=== PATIENT | male | born 1990 | race Caucasian/White ===

== ENCOUNTER 2025-02-27 12:11 | Outpatient (AMB) | payer MEDICAID, SELFPAY ==
--- OUTSIDE RECORDS SUMMARY | 2025-02-14 14:00 | XMS_ITS | Encounter Summary ---
Author Organization [facility] Address [address] [place] [address] Care Team Providers Care Patient Care Provider Name Role Phone Parviz Rich MD Primary Care Provider [phone] Reason for Referral * Imaging (Routine) - Pending Review Specialty Diagnoses / Procedures Referred By Destin de león Referred To Contact Diagnoses Chest pain due to myocardial ischemia, unspecified ischemic chest pain type Resistant hypertension Hx of mechanical aortic valve replacement History of ascending aorta repair Other chest pain Renovascular hypertension Procedures Vascular US duplex renal artery/venous bilateral Bernard Nelson MD [address] [facility] [address] [place] [address] Phone: tel: fax: [facility] Referral ID Status Reason Start Date Expiration Date V isits Requested Visits Authorized [id number] Pending Review 02/14/2025 02/14/2026 1 1 Reason for Visit * Reason Comments Hospital Follow-up * Consultation (Urgent) - Closed Specialty Diagnoses / Procedures Referred By Destin de león Referred To Contact Cardiology Diagnoses Chest pain due to myocardial ischemia, unspecified ischemic chest pain type Parviz Rich MD [address] [place] [address] Phone: tel: fax: [facility] [address] [facility] [address] [place] [address] Phone: tel: fax: Referral ID Status Reason Start Date Expiration Date V isits Requested Visits Authorized [id number] Closed Specialty Services Required 12/07/2024 12/07/2025 1 1 Encounter Details Date Type Department Care Team (Late st Contact Info) Description 02/14/2025 2:00 PM EDT Office Visit [facility] [address] [facility] [address] [place] [id number] Bernard Nelson MD [address] [facility] [address] [place] [address] Resistant hypertension (Primary Dx); Chest pain due to myocardial ischemia, unspecified ischemic chest pain type; Hx of mechanical aortic valve replacement; History of ascending aorta repair; Other chest pain; Mixed hyperlipidemia; Renovascular hypertension Social History Tobacco Use Types Packs/Day Years Used Date Smoking Tobacco: Never Smokeless Tobacco: Never Alcohol Use Standard Drinks/Week Comments Never 0 (1 standard drink = 0.6 oz pur e alcohol) Interpersonal Safety Answer Date Record ed Physical Abuse 12/01/2024 Verbal Abuse 12/01/2024 Sex and Gender Information Value Date Recorded Sex Assigned at Male 11/30/2024 7:00 PM EDT Legal Sex Male 9:03 AM EST Gender Identity Male 11/30/2024 7:00 PM EDT Sexual Orientation Straight 11/30/2024 7: 00 PM EDT documented as of this encounter Last Filed Vital Signs Vital Sign Reading Time Taken Comments Blood Pressure 140/72 02/14/2025 1:52 PM EDT Pulse 63 02/14/2025 1:52 PM EDT Temperature - - Respiratory Rate - - Oxygen Saturation 98% 02/14/2025 1:52 PM EDT Inhaled Oxygen Concentration - - Weight 62.1 kg (137 lb) 02/14/2025 1:52 PM EDT Height 160 cm (5' 3 ) 02/14/2025 1:52 PM EDT Body Mass Index 24.27 02/14/2025 1:52 PM EDT documented in this encounter Functional Status * Are you deaf or do you have serious difficulty hearing? Answer Date of Assessment Author No 11/30/2024 8:51 PM EDT Roseanna Bill RN * Are you blind or do you have serious difficulty seeing, even when wearing glasses? Answer Date of Assessment Author No 11/30/2024 8:51 PM EDT Roseanna Bill RN * Do you have serious difficulty walking or climbing stairs? Answer Date of Assessment Author No 11/30/2024 8:51 PM EDT Roseanna Bill RN * Do you have serious difficulty dressing or bathing? Answer Date of Assessment Author No 11/30/2024 8:51 PM EDT Roseanna Bill RN * Because of a physical, mental, or emotional condition, do you have serious difficulty doing errandsalone such as visiting the doctor? Answer Date of Assessment Author No 11/30/2024 8:51 PM EDT Roseanna Bill RN documented as of this encounter Mental Status * Because of a physical, mental, or emotional condition, do you have serious difficulty concentrating, remembering, or making decisions? (5 years old or older) Answer Entry Date Author No 11/30/2024 8:51 PM EDT Roseanna Bill RN documented in this encounter Progress Notes * Bernard Nelson MD - 02/14/2025 2:00 PM EDT -Felipe Mera is a 34 y.o. old male Felipe was in [facility] in November. It was around December 04. He wasadmitted with generalized weakness and dizziness. He had actually left the hospital AGAINST MEDICALADVICE. He came in to [facility] after a recent admission to [facility] with uncontrolled hypertension. Amlodipine was added and he was discharged in the next day went to [facility] with generalized weakness,lightheadedness and dizziness. His blood pressure was 162/94 temp 97.9 heart rate 82. EKG normal. Laboratory evaluation was unremarkable. CTA of the head and neck was normal. CT of the head was normal. When he came to [facility] it was November 29. He actually had a laceration on his tongue on November 29. On November 30 he came back with left-sided chest pain that improved on its own. Labs EKG etc. normal. Amlodipine added for his high blood pressure. Dr. Solares saw him in consultation December 02. He thought the pain was more typical of the GI pain and suggested checking amylase and lipase. Plasma metanephrines were alsoordered. And he thought that it the patient might need a renal artery duplex. CTA of the chest showed no dissection and mild dilatation of the aortic arch. Mild increase in sizeof the pulmonary arteries. He was a sharp pain in the chest. Somewhat pleuritic. C-reactive proteinnormal. Sed rate 17. Plasma metanephrines and normetanephrine's normal. His last visit with us was August 20. He has a history of primary hypertension, hyperlipidemia andascending aortic dilatation status post repair and valve replacement. His father of an ID at age 50. The surgery was in 2019. ROS: Felipe has been plagued by chronic pain he says since August. But at the same time he says he has had this for years but he when he was here in July 2024 he was exercising regularly with nopain and feeling well. He has become from his . They share custody of 2 children. He told Cecy that he has not been able to work because of pain and smokes marijuana. The pain is in the left lateral wall of the chest. It usually occurs in the morning when he wakes up and can radiatedown the left arm and last all day long. It usually every day sometimes every other day. Sometimes it will not occur in the morning but will occur later in the day and it will be a sharp pain. It canlast for hours. The pain is not any different with respiration or palpation. He says its deep inside the chest. He also told me that since adding amlodipine his blood pressures at home are generally 110-120. PAST MEDICAL HISTORY: Patient Active Problem List Diagnosis Date Noted Resistant hypertension 02/14/2025 Hypertensive urgency 12/07/2024 Other chest pain 12/02/2024 Chest pain 11/30/2024 History of ascending aorta repair 08/16/2024 Mixed hyperlipidemia 08/16/2024 Bradycardia 08/16/2024 Mild pulmonary valve insufficiency 08/16/2024 Mild mitral regurgitation 08/16/2024 Mild tricuspid regurgitation 08/16/2024 Family history of premature CAD 08/16/2024 Primary hypertension 07/03/2021 Ascending aortic aneurysm (CMS/HCC V24) 06/15/2020 Erectile dysfunction 06/15/2020 Nonrheumatic aortic (valve) insufficiency 06/15/2020 Hx of mechanical aortic valve replacement 11/24/2019 Recurrent shoulder dislocation 01/12/2014 Generalized tonic clonic epilepsy ([facility] V24, [facility] V28) 07/09/2006 FAMILY HISTORY: Family History Problem Relation Name Age of Onset Arthritis Mother Heart attack Father 56.00 from massive heart attack Other (Other: MVA) Sister x 1 Nephrolithiasis Sister x 3 Stroke Maternal Grandfather 55.00 ID, HTN, EtOH abuse SOCIAL HISTORY: Social History Tobacco Use Smoking status: Never Smokeless tobacco: Never Substance Use Topics Alcohol use: Never ACTIVE MEDICATIONS: Outpatient Medications Prior to Visit Medication Sig Dispense Refill amLODIPine (NORVASC) 10 mg tablet Take 1 tablet (10 mg total) by mouth 1 (one) time each day. 30 each 5 hydrALAZINE (APRESOLINE) 50 mg tablet Take 1 tablet (50 mg total) by mouth 2 (two) times a day. (Patient taking differently: Take 1 tablet (50 mg total) by mouth 2 (two) times a day. As needed) 60 each 0 losartan (COZAAR) 100 mg tablet Take 1 tablet (100 mg total) by mouth 1 (one) time each day. 90 tablet 2 metoprolol succinate (TOPROL-XL) 50 mg 24 hr tablet Take 1 tablet (50 mg total) by mouth 1 (one) time each day. Do not crush or chew. 90 each 2 OXcarbazepine (TRILEPTAL) 600 mg tablet Take 2 Tabs by mouth 2 times daily. PHENobarbitaL 30 mg tablet Take 1 tablet (30 mg total) by mouth at bedtime. warfarin (COUMADIN) 10 mg tablet 1 tablet (10 mg total). Followed by [facility] warfarin (COUMADIN) 2.5 mg tablet MANAGED BY [facility] methocarbamoL (ROBAXIN) 500 mg tablet Take 1 tablet (500 mg total) by mouth 3 (three) times a day. (Patient taking differently: Take 1 tablet (500 mg total) by mouth 1 (one) time if needed.) 30 tablet 1 No facility-administered medications prior to visit. ALLERGIES: @ALL@ PHYSICAL EXAM: Blood pressure (!) 140/72, pulse 63, height 1.6 m (63 ), weight 62.1 kg (137 lb), SpO2 98%. Physical Exam Constitutional: Appearance: Normal appearance. Comments: He is a trim fit appearing young man. HENT: Head: Normocephalic. Eyes: Extraocular Movements: Extraocular movements intact. Pupils: Pupils are equal, round, and reactive to light. Neck: Vascular: No carotid bruit. Cardiovascular: Rate and Rhythm: Normal rate and regular rhythm. Pulses: Normal pulses. Heart sounds: Normal heart sounds. Comments: Well-healed midline scar. [place] mechanical valve sounds. Pulmonary: Effort: Pulmonary effort is normal. Breath sounds: Normal breath sounds. Abdominal: General: Bowel sounds are normal. Palpations: Abdomen is soft. Musculoskeletal: Right lower leg: No edema. Left lower leg: No edema. Skin: General: Skin is warm and dry. Neurological: General: No focal deficit present. Psychiatric: Mood and Affect: Mood normal. EKG: Blood pressure scratch that EKG December 07, 2024 shows sinus rhythm at 60 with early repolarization and evidence of voltage criteria for LVH. TESTING: No results displayed because visit has over 200 results. Office Visit on 08/16/2024 Component Date Value Ref Range Status Ventricular Rate ECG 08/16/2024 52 BPM Final Atrial Rate 08/16/2024 52 BPM Final P-R Interval 08/16/2024 176 ms Final QRS Duration 08/16/2024 98 ms Final Q-T Interval 08/16/2024 442 ms Final QTc 08/16/2024 411 ms Final P Wave Sterling 08/16/2024 65 degrees Final R Sterling 08/16/2024 69 degrees Final T Sterling 08/16/2024 73 degrees Final ECG Interpretation 08/16/2024 Final Value:Sinus bradycardia Possible Left atrial enlargement Left ventricular hypertrophy Nonspecific ST abnormality Abnormal ECG When compared with ECG of 29-MAY-2014 15:47, No significant change was found Confirmed by Jhoana NELSON JAY ([id number]) on 08/16/2024 9:16:38 AM Abstract on 08/04/2024 Component Date Value Ref Range Status Gonorrhea/Chlamydia Screening 06/06/2014 abstracted Final Hepatitis C Screening 11/08/2021 abstracted Final HIV Screening 03/16/2014 abstracted Final Annual BMP Blood Test 11/08/2021 abstracted Final LDL/HDL Ratio 07/04/2021 7 (A) 0 - 4 Final Triglycerides 07/04/2021 318 (A) 0 - 10 mg/dL Final Cholesterol 07/04/2021 239 (A) 0 - 200 mg/dL Final HDL 07/04/2021 37 (A) >=39 mg/dL Final LDL Cholesterol 07/04/2021 139 (A) 0 - 100 mg/dL Final ASSESSMENT/PLAN: Problem List Items Addressed This Visit Hx of mechanical aortic valve replacement Relevant Orders Vascular US duplex renal artery/venous bilateral History of ascending aorta repair Relevant Orders Vascular US duplex renal artery/venous bilateral Mixed hyperlipidemia Chest pain Relevant Orders Vascular US duplex renal artery/venous bilateral Vascular US duplex renal artery/venous bilateral Other chest pain Relevant Orders Vascular US duplex renal artery/venous bilateral Resistant hypertension - Primary Relevant Orders Vascular US duplex renal artery/venous bilateral Orders Placed This Encounter Procedures Vascular US duplex renal artery/venous bilateral Echo is having chronic sharp deep-seated left lateral wall chest pain. It is actually not in the wall but deep inside the chest. CTs of the chest with contrast have been normal. On December 08 I ordered acoronary CTA which was done last week. Results are pending. His blood pressure remains elevated on multiple medications. Today 140/72. He has been unable to work because of this pain. He is under a lot of stress having to get money to ensure he has a place to live that is children are taken care of. He wants to go for second opinions to [facility] cardiology. There have been insurance problems with that. He is trying to change his insurance situation. 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 We have to look elsewhere for causes of the chest pain. Exactly where I am not sure. For his blood pressure I am setting up a renal artery duplex. We might also consider 24-hour ambulatory blood pressure monitoring. The [facility] team will continue to co-manage this patient following the plan of care as established by my initial visit and as per AHA guidelines for ongoing management and surveillance of aortic valve and aortic root replacement. Hypertension hyperlipidemia chest pain. . This will include medication tit ration, initiation of appropriate medications and further titration, and diagnostic studies to manage this disease process. @ESIGNATURE@ documented in this encounter Plan of Treatment Upcoming Encounters Date Type Department Care Team (Late st Contact Info) Description 03/22/2025 7:00 AM EDT Ancillary Procedure [facility] [address] [phone] 04/21/2025 11:20 AM EDT Office Visit [facility] [address] [phone] Bernard Nelson MD [address] [address] Scheduled Orders Name Type Priority Associated Diagnoses Orde r Schedule Vascular US duplex renal artery/venous bilateral Vascular Ultrasound Routine Chest pain due to myocardial ischemia, unspecified ischemic chest pain type Resistant hypertension Hx of mechanical aortic valve replacement History of ascending aorta repair Other chest pain Renovascular hypertension 1 Occurrences starting 02/14/2025 until 02/14/2026 documented as of this encounter Visit Diagnoses Diagnosis Resistant hypertension- Primary Chest pain due to myocardial ischemia, unspecified ischemic chest pain type Hx of mechanical aortic valve replacement History of ascending aorta repair Other chest pain Mixed hyperlipidemia Renovascular hypertension Secondary renovascular hypertension, unspecified documented in this encounter Orders Outpatient Referral Count Last Ordered Date Fir st Ordered Date AMB REFERRAL TO CARDIOLOGY 1 02/14/2025 documented in this encounter Care Teams Patient Care Provider Relationship Specialty Start Date End Date Parviz Rich MD [address] [place] [id number] PCP - General Internal Medicine 08/24/24 documented as of this encounter
--- NOTE | 2025-02-27 12:17 | A.OFFVIS_ITS ---
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 He was diagnosed at [facility] in 2017. He was getting grand mal seizures. Typically, he had warning of fear, inability to speak, and falling down and shaking all over. He has bitten his tongue but has not urinated during the spell. After not having any seizure-like episode since 2019, he had 3 different episodes in a span of 3 months in 2023 without obvious reason and Fycompa was added. His insurance did not cover it and it was changed to phenobarbital. Phenobarbital was helping. He said that since taking it he did not have any more episodes. Review of Systems Const Details: Constitutional:?No fever, chills, fatigue, weight loss, or night sweats. HEENT:?No headache, vision changes, hearing loss, nasal congestion, sore throat. Neurological:?No dizziness, syncope, seizures, numbness, tingling, weakness, tremors, memory loss. Psychiatric:?No anxiety, depression, mood swings, sleep disturbance, or hallucinations. Endocrine:?No heat/cold intolerance, polydipsia, polyuria, or hair/skin changes. Hematologic/Lymphatic:?No easy bruising, bleeding, or lymphadenopathy. Integumentary (Skin):?No rash, lesions, itching, or color changes. ? Physical Exam Neuro Other: Mental Status: Alert and oriented to person, place, and time. Normal attention. Normal spontaneous speech, fluency, and comprehension. No obvious issues with mood and memory. Affect is appropriate. Cranial Nerves: CN II: Visual kathleen full to confrontation, visual acuity intact. CN III, IV, : Pupils equal, round, reactive to light and accommodation. Extraocular movements are normal. CN V: Facial sensation is normal. CN VII: Facial movements symmetrical. CN VIII: Hearing intact to bedside conversation is normal. CN IX, X: Palate elevates symmetrically. CN XI: Shoulder shrug and head turn symmetrical. CN XII: Tongue midline without atrophy or fasciculations. Extrapyramidal: Full facial expressions and blinking. No rigidity. Movements are appropriate with no tremor or abnormality. Speech: Normal; no dysarthria or tremor. 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 Oxcarbazepine 600 mg twice a day 2. Phenobarbital 30 mg at night 3. MRI of brain with and without contrast Orders: Orders MR head/brain wo/w con Today G40.804 - Other epilepsy, intractable, without status epilepticus Medications: New oxcarbazepine 600 mg PO BID 180 tabs 0RF phenobarbital 30 mg PO BEDTIME 90 tabs 0RF Coding Level of Care Code Est Pt Level 4 (53643) Diagnoses Other intractable epilepsy without status epilepticus G40.804 Epilepsy type: other Intractability: intractable Status epilepticus: without status epilepticus
--- OUTSIDE RECORDS SUMMARY | 2025-02-27 12:50 | XMS_ITS | Clinical Summary ---
Author Organization [facility] Address [address] [place] [phone] Phone Care Team Providers Care Veterinary Practice Manager Name Role Phone Parviz Rich MD Primary Care Provider + Encounters Date Type Department Care Team Description 12/27/2024 Orders Only [facility] Card[facility] [address] [place] [address] Cyndi Deutsch RN from Last 3 Months Social History Tobacco Use Types Packs/Day Years Used Date Smoking Tobacco: Never Assessed Education Answer Date Recorded Are you interested in more education? Not on quinten e 12/27/2024 Are you concerned about learning? Not on file 12/27/2024 No 12/27/2024 No 12/27/2024 Digital Access Answer Date Recorded No 12/27/2024 No 12/27/2024 Reliable internet access at home? Not on file 12/27/2024 Device with a working camera? Not on file Sex and Gender Information Value Date Recorded Sex Assigned at Male 12/15/2024 8:47 AM EDT Legal Sex Male 8:40 AM EDT Gender Identity Male 12/15/2024 8:47 AM EDT Sexual Orientation Straight 12/15/2024 8: 47 AM EDT Plan of Treatment Not on file Medical Devices Not on file Insurance [employer] NON NSPG PCP [employer] NON [employer]SPG PCP [employer] NON NSPG PCP [employer] [address] [employer] [facility] ACO [employer] NON NSPG PCP S[employer] [address] [employer] PART[employer] NON NSPG PCP [employer] Member Subscriber Plan / Payer (Ef fective 2024-Present) Name:MeraFelipe fuentes Relation to Subscriber:Self Name:Felipe Mera Payer ID:[id number] Type:HMO Address: [address] [employer] [facility] NON NSPG PCP [employer] [facility] [employer] A[employer] Care Teams Veterinary Practice Manager Relationship Specialty Start Date End Date Parviz Rich MD [address] [place] [phone] PCP - General Internal Medicine 12/15/24 Additional Source Comments The information contained in this document represents components of the legal health record. It is not the complete legal health record.[facility]
== END 2025-02-27 12:34 | disposition home or self-care (01) ==
LOC: HO.HSM 12:11
PROVIDERS: PCP Internal Medicine; Visit Provider Psychiatry & Neurology Neurology
DX: G40.804 Other epilepsy, intractable, without status epilepticus (principal)
CPT/HCPCS: 99214

== ENCOUNTER → 2025-02-27 12:11 | Outpatient (BNVA) | payer OTHER, SELFPAY | PROVIDERS: PCP Internal Medicine; Visit Provider Psychiatry & Neurology Neurology | DX: G40.804 Other epilepsy, intractable, without status epilepticus (principal) | CPT/HCPCS: 99212 ==

== ENCOUNTER → 2025-03-12 15:36 | Outpatient (BNV) | payer OTHER, SELFPAY | PROVIDERS: PCP Internal Medicine; Visit Provider Radiology Diagnostic Radiology | DX: G40.909 Epilepsy, unspecified, not intractable, without status epilepticus (principal); G93.89 Other specified disorders of brain | CPT/HCPCS: 70553 ==

== ENCOUNTER 2025-03-12 15:37 | Outpatient (REF) | payer OTHER, SELFPAY ==
--- NOTE | ~2025-03-12 | MR_ITS ---
EXAMINATION: MR BRAIN WITHOUT AND WITH CONTRAST CLINICAL INFORMATION: Epilepsy. COMPARISON: October 26, 2019. TECHNIQUE: Multiplanar, multisequence MRI of the brain was obtained before and after the intravenous administration of 6.0 mL gadolinium based without reported immediate complications.. FINDINGS: Bilateral, nodular subependymal peña matter. Cerebral cortex appears normal bilaterally. Prominent, 20 mm anterior temporal horn, right lateral ventricle. No abnormal enhancement within the intra-axial or the extra-axial compartment of the cranium. No restricted diffusion. Posterior cranial fossa contents demonstrated a lina cisterna magna. Normal position of the cerebellar tonsils. Sellar/suprasellar region demonstrated no signal abnormality or enhancing lesion. No schizencephaly. The corpus callosum appears intact. The Meckel's caves are normal. No volume loss or signal abnormality in the hippocampi. Bilateral multifocal punctate subcortical deep white matter hyperintense T2 FLAIR signal involving centrum semiovale perez radiata, the most conspicuous measures 6 mm in the right frontotemporal region near the supramarginal/angular gyri. Flow-void signal within the main cerebral vessels is normal. MR/MR head/brain wo/w con IMPRESSION: Nodular subependymoma peña matter heterotopia, bilaterally. Probable coarctation, temporal horn right lateral ventricle. Lina cisterna magna. Nonspecific T2 FLAIR signal white matter. No acute brain abnormality. No abnormal enhancement. Stable brain. Electronically signed by: Nabor Kingsley MD 03/13/2025 08:44 AM EDT
--- OUTSIDE RECORDS SUMMARY | 2025-03-12 15:47 | XMS_ITS | Clinical Summary ---
Author Organization [address] [place] [address] [place] [phone] Phone Care Team Providers Care Police Detective Name Role Phone Parviz Rich MD Primary Care Provider [phone] Allergies No known active allergies Medications OXcarbazepine (TRILEPTAL) 600 mg tablet Take 2 Tabs by mouth 2 times daily. 11/01/19 21 Active warfarin (COUMADIN) 2.5 mg tablet MANAGED BY [facility] 09/10/19 22 Active losartan (COZAAR) 100 mg tabletIndications: Primary hypertension Take 1 tablet (100 mg total) by mouth 1 (one) time each day. 90 tablet 2 08/16/19 25 Active metoprolol succinate (TOPROL-XL) 50 mg 24 hr tabletIndications: Primary hypertension Take 1 tablet (50 mg total) by mouth 1 (one) time each day. Do not crush or chew. 90 each 2 08/16/19 25 Active warfarin (COUMADIN) 10 mg tablet 1 tablet (10 mg total). Followed by [facility] 11/19/19 25 Active PHENobarbitaL 30 mg tablet Take 1 tablet (30 mg total) by mouth at bedtime. 11/02/19 25 Active hydrALAZINE (APRESOLINE) 50 mg tablet Take 1 tablet (50 mg total) by mouth 2 (two) times a day. 60 each 12/04/19 25 Active Additional Information Patient taking differently:50 mg oral 2 times daily,As needed, Reported on 02/14/2025 methocarbamoL (ROBAXIN) 500 mg tablet Take 1 tablet (500 mg total) by mouth 3 (three) times a day. 30 tablet 1 12/09/19 25 Active Additional Information Patient taking differently:500 mg oralOnce as needed, Reported on 01/04/2025 amLODIPine (NORVASC) 10 mg tablet Take 1 tablet (10 mg total) by mouth 1 (one) time each day. 30 each 5 01/31/20 25 Active rosuvastatin (CRESTOR) 20 mg tabletIndications: Nonrheumatic aortic (valve) insufficiency,Prim [place] hypertension,Mild mitral regurgitation,Mild tricuspid regurgitation,Resi stant hypertension,Mixed hyperlipidemia Take 1 tablet (20 mg total) by mouth 1 (one) time each day. 90 each 2 02/21/20 25 026 Active Active Problems Problem Noted Date Diagnosed Date Renovascular hypertension 02/24/2025 Resistant hypertension 02/14/2025 Hypertensive urgency 12/07/2024 Other chest pain 12/02/2024 Chest pain 11/30/2024 History of ascending aorta repair 08/16/2024 Assessment & Plan (08/16/2024 8:52 PM EST): Orders: Transthoracic echocardiogram (TTE) complete with PRN contrast, bubble, strain, and 3D order panel; Future Mixed hyperlipidemia 08/16/2024 Assessment & Plan (08/16/2024 8:52 PM EST): His most recent lipid panel completed approximately 3 years ago reveals an LDL of 139 with low HDL and elevated triglycerides. Though his weight remains within a normal range, it has continued to creep up over the years. We will update a lipid panel today continue to readdress this as indicated; the patient has a past medical history significant for a family history of premature CAD in both his father and maternal grandfather and would likely benefit from tight lipid control. Should his cholesterol remain significantly elevated, may consider coronary calcium scoring for further evaluation. We discussed risk reduction through lifestyle choices including healthy diet, routine exercise and weight management. I have reviewed with the patient the importance of a heart healthy lifestyle which includes eating a low-fat low-salt diet, getting regular exercise, maintaining a healthy weight, not smoking, and following up with routine medical care. Orders: Comprehensive metabolic panel; Future Lipid panel with reflex to direct LDL; Future Bradycardia 08/16/2024 Assessment & Plan (08/16/2024 8:52 PM EST): Heart rate bradycardic at 52 bpm today; the patient is completely asymptomatic of this. As such, we will not make any changes to his metoprolol at this time but will continue to readdress this as above. Worrisome signs or symptoms for which he should return to care or seek emergent medical attention were reviewed and he verbalizes understanding. Mild pulmonary valve insufficiency 08/16/2024 Assessment & Plan (08/16/2024 8:52 PM EST): Mild mitral regurgitation 08/16/2024 Assessment & Plan (08/16/2024 8:52 PM EST): Mild tricuspid regurgitation 08/16/2024 Assessment & Plan (08/16/2024 8:52 PM EST): Family history of premature CAD 08/16/2024 Assessment & Plan (08/16/2024 8:52 PM EST): Primary hypertension 07/03/2021 Assessment & Plan (08/16/2024 8:52 PM EST): The patient's blood pressure was elevated on initial and recheck today in office; he has not yet taken his morning medications. I have asked him to check his blood pressures and heart rate once daily approximately 1 to 2 hours after taking his morning medications; he will return to our office in approximately 2 weeks for a blood pressure and heart rate check with nursing at which time he will bring his home cuff as well as a list of his recent readings. At that time we will determine the need for any adjustments in his antihypertensive medical therapies; for now, continue metoprolol and losartan. He verbalizes understanding of the importance of adequate blood pressure control as it relates to his history of valvular dysfunction and mild LVH seen on previous echocardiogram and further evidence of this noted on today's ECG. Orders: ECG 12 lead losartan (COZAAR) 100 mg tablet; Take 1 tablet (100 mg total) by mouth 1 (one) time each day. metoprolol succinate (TOPROL-XL) 50 mg 24 hr tablet; Take 1 tablet (50 mg total) by mouth 1 (one) time each day. Do not crush or chew. Transthoracic echocardiogram (TTE) complete with PRN contrast, bubble, strain, and 3D order panel; Future Comprehensive metabolic panel; Future Ascending aortic aneurysm ([facility] V24) 06/15/20 Assessment & Plan (08/16/2024 8:52 PM EST): The patient is now status post ascending aortic aneurysm repair with replacement of his aortic valve in 2019. His most recent echocardiogram from January 2020 showed mild perivalvular insufficiency of his mechanical valve as well as 1+ MR, 1+ TR with normal PASP, and 1+ pulmonic insufficiency. He remains active on a regular basis and offers no symptoms concerning for worsening valvular dysfunction; his physical exam also does not present any concerning findings today. However, he is due for an updated echocardiogram which has been ordered for him today. We will continue to readdress this once the results have been reviewed. Orders: Transthoracic echocardiogram (TTE) complete with PRN contrast, bubble, strain, and 3D order panel; Future Erectile dysfunction 06/15/2020 Nonrheumatic aortic (valve) insufficiency 2019 Assessment & Plan (08/16/2024 8:52 PM EST): Orders: Transthoracic echocardiogram (TTE) complete with PRN contrast, bubble, strain, and 3D order panel; Future Hx of mechanical aortic valve replacement 2019 Overview (08/16/2024): 11/13 aortic valve replacement, mechanical valve and ascending aortic aneurysm repair Assessment & Plan (08/16/2024 8:52 PM EST): Orders: Transthoracic echocardiogram (TTE) complete with PRN contrast, bubble, strain, and 3D order panel; Future Recurrent shoulder dislocation 01/12/2014 Generalized tonic clonic epi lepsy (CMS/HCC V24, CMS/HCC V28) 07/09/2006 Encounters Date Type Department Care Team Description 03/03/2025 Telephone [facility] [address] [place] [address] Parviz Rich MD Medical Records 03/03/2025 Telephone [facility] [address] [place] [address] Bernard Cuellar MD 02/24/2025 Telephone [facility] [address] [place] [address] Bernard Cuellar MD 02/24/2025 Telephone [facility] [address] [place] [phone] Bernard Cuellar MD DX REVIEW (Renal US) 02/20/2025 Telephone [facility] [address] [place] [address] Bernard Cuellar MD FMLA 02/15/2025 Telephone [facility] [address] [place] [address] Bernard Cuellar MD 02/14/2025 2:00 PM EDT Office Visit [facility] [address] [place] [phone] Bernard Cuellar MD Resistant hypertension (Primary Dx); Chest pain due to myocardial ischemia, unspecified ischemic chest pain type; Hx of mechanical aortic valve replacement; History of ascending aorta repair; Other chest pain; Mixed hyperlipidemia; Renovascular hypertension 01/24/2025 Telephone [facility] [address] [place] [address] Parviz Rich MD pfmla extension 01/20/2025 Telephone [facility] [address] [place] [phone] Janett Millard NP No Show (#2) 01/04/2025 2:45 PM EDT Office Visit Internal Medicine [address] [address] Parviz Rich MD Chest pain, unspecified type (Primary Dx); Primary hypertension 01/04/[address] [address] Parviz Rich MD Chest Pain; FMLA 01/02/2025 [address]phone [address] [address] Parviz Rich MD Forms/questionnaires (PFMLA) 12/27/[address] [address] Parviz Rich MD Forms/questionnaires 12/27/[address] [address] Parviz Rich MD Referral 12/16/2024 Telephone [facility] [address] [facility] [address] [place] [phone] Janett Millard NP No Show 12/12/2024 Telephone [facility] [address] [facility] [address] [place] [phone] eBrnard Cuellar MD Appointment (Coronary CTA) from Last 3 Months Immunizations Name Administration Dates Next Due Influenza Quadravalent, MDCK , 0.5ml, preservative free (Flucelvax) 6mo and older 06/25/2021 Tdap Tetanus diptheria acell ular pertussis (Boostrix; Adacel) 7yo and older 11/20/2010 Surgical History Surgery Date Site/Laterality Comments OTHER SURGICAL HISTORY 2000 PROCEDURE: HI RDCTJ TORSION TSTIS W/WO FIXJ CLAT TESTIS OTHER SURGICAL HISTORY PROCEDURE: HI RPR 1ST INGUN HRNA FULL TERM INFT <6 MO RDC; COMMENT: as AORTIC VALVE REPLACEMENT 10/28/2019 PROCEDURE: HISTORICAL AORTIC VALVE REPL; COMMENT: ascending aortic aneurysm repair as well as an aortic valve replacement with a mechanical valve Medical History Medical History Date Comments Unspecified epilepsy without mention of intractable epilepsy DX:Unspecified epilepsy with out mention of intractable epilepsy; COMMENT: Dr Lan for neurology S/P AVR (aortic valve replacement) 11/24/2019 DX:S/P AVR (aortic valve replacement); COMMENT: 11/13 aortic valve replacement, mechanical valve and ascending aortic aneurysm repair Family History Medical History Relation Name Comments Heart attack Father from m assive heart attack Stroke Maternal Grandfather [place], HTN , EtOH abuse Arthritis Mother Other: MVA Sister 1 x 1 Nephrolithiasis Sister 2 x 3 Relation Name Status Comments Brother x 5 Alive x5 healthy Daughter Alive x1 healthy Father (Age 56) [place] Maternal Grandfather Maternal Grandmother unknown Other Mother Alive Paternal Grandfather age 95 Paternal Grandmother Sister 1 x 1 (Age 23) MVA Sister 2 x 3 Alive x3 healthy Social History Tobacco Use Types Packs/Day Years Used Date Smoking Tobacco: Never Smokeless Tobacco: Never Tobacco Cessation:Counseling Given: Not Answered Alcohol Use Standard Drinks/Week Comments Never 0 [...] Orientation Straight 11/30/2024 7: 00 PM EDT Obstetrics History Last Filed Vital Signs Vital Sign Reading Time Taken Comments Blood Pressure 140/72 02/14/2025 1:52 PM EDT Pulse 63 02/14/2025 1:52 PM EDT Temperature 36.6 C (97.9 F) 12/03/2024 8:10 AM EDT Respiratory Rate 16 12/03/2024 8:10 AM EDT Oxygen Saturation 98% 02/14/2025 1:52 PM EDT Inhaled Oxygen Concentration - - Weight 62.1 kg (137 lb) 02/14/2025 1:52 PM EDT Height 160 cm (5' 3 ) 02/14/2025 1:52 PM EDT Body Mass Index 24.27 02/14/2025 1:52 PM EDT Plan of Treatment Upcoming Encounters Date Type Department Care Team (Late st Contact Info) Description 03/22/2025 7:00 AM EDT Ancillary Procedure [facility] [address] [address] 04/21/2025 11:20 AM EDT Office Visit [facility] [address] [phone] Bernard Cuellar MD [address] [address] Health Maintenance Due Date Last Done Comments Hepatitis B Vaccines (1 of 3 - 19+ 3-dose series) 2008 Pneumococcal Vaccine: Pediatrics (0 to 5 Years) and At-Risk Patients (6 to 49 Years) (2 of 2 - PCV) 01/15/2017 01/16/2016 Social Influencers of Health Screening 06/29/2022 COVID-19 Vaccine ( - 2023-2 5 season) 2024 04/15/2021, 03/25/2021 Depression Screening 07/27/2024 Influenza Vaccine (#1) 2025 06/25/2021 Hypertension/CHF/CAD Annual BMP Blood Test 12/01/2025 12/01/2024, 11/30/2024, 11/08/2021 Cholesterol Screening (Lipid Panel) 12/01/2029 12/01/2024, 07/04/2021 DTaP,Tdap,and Td Vaccines (3 - Td or Tdap) 02/27/2033 02/27/2023, 11/20/2010 HIV Screening Completed 03/16/2014 Hepatitis C Screening Completed 11/08/2021 HIB Vaccines Aged Out No longer eligi ble based on patient's age to complete this topic HPV Vaccines Aged Out No longer eligi ble based on patient's age to complete this topic Hepatitis A Vaccines Aged Out No long er eligible based on patient's age to complete this topic IPV Vaccines Aged Out No longer eligi ble based on patient's age to complete this topic MMR Vaccines Aged Out No longer eligi ble based on patient's age to complete this topic Meningococcal ACWY Vaccine Aged Out N o longer eligible based on patient's age to complete this topic Meningococcal B Vaccine Aged Out No l onger eligible based on patient's age to complete this topic RSV Immunization Patients Under 20 months Aged Out No longer eligible b ased on patient's age to complete this topic Varicella Vaccines Aged Out No longer eligible based on patient's age to complete this topic Procedures Procedure Name Priority Date/Time Associated Diagnosis Comments LIPID PANEL WITH REFLEX TO DIRECT LDL Routine 12/01/2024 3:19 PM EDT BASIC METABOLIC PANEL Routine 12/01/2024 5:06 AM EDT HEPATITIS C SCREENING Routine 11/08/2021 HIV SCREENING Routine 03/16/2014 from Last 3 Months or Most Recently Relevant to Health Maintenance Results * (ABNORMAL) Lipid panel with reflex to direct LDL (12/01/2024 3:19 PM EDT) Cholesterol 238(H) 0 - 200 mg/dL LAB CHEMISTRY METHOD 12/01/2024 4:26 PM EDT [facility] Triglycerides 181(H) 0 - 150 mg/dL LAB CHEMISTRY METHOD 12/01/2024 4:26 PM EDT [facility] HDL 63 >=40 mg/dL LAB CHEMISTRY METHOD 12/01/2024 4:26 PM EDT [facility] LDL Calculated 139(H) 0 - 100 mg/dL LAB CHEMISTRY METHOD 12/01/2024 4:26 PM EDT [facility] VLDL Cholesterol Nemesio 36.2 mg/dL LAB CHEMISTRY METHOD 12/01/2024 4:26 PM EDT [facility] Non HDL Chol. (LDL+VLDL) 175(H) <145 mg/dL LAB CHEMISTRY METHOD 12/01/2024 4:26 PM EDT [facility] Chol/HDL Ratio 3.8 0.0 - 4.4 LAB CHEMISTRY METHOD 12/01/2024 4:[address] [facility] Blood Venous blood specimen / Unknown Venipuncture / Unknown 12/01/2024 3:19 PM EDT 12/01/2024 3:46 PM EDT us Kenna Kunzbeverly Gil [employer] LAB BLOOD ORDERABLES Fin al Result [facility] [address] [place] [address], [place] [phone] * (ABNORMAL) Basic metabolic panel (12/01/2024 5:06 AM EDT) Sodium 139 133 - 145 mmol/L LAB CHEMISTRY METHOD 12/01/2024 6:[address] [facility] Potassium 4.1 3.5 - 5.5 mmol/L LAB CHEMISTRY METHOD 12/01/2024 6:[address] [facility] Chloride 105 96 - 110 mmol/L LAB CHEMISTRY METHOD 12/01/2024 6:[address] [facility] CO2 30 21 - 32 mmol/L LAB CHEMISTRY METHOD 12/01/2024 6:[address] [facility] Anion Gap 4 3 - 11 LAB CHEMISTRY METHOD 12/01/2024 6:[address] [facility] Glucose 88 70 - 100 mg/dL LAB CHEMISTRY METHOD 12/01/2024 6:[address] [facility] BUN 10 5 - 25 mg/dL LAB CHEMISTRY METHOD 12/01/2024 6:[address] [facility] Creatinine 0.82 0.70 - 1.30 mg/dL LAB CHEMISTRY METHOD 12/01/2024 6:[address] [facility] eGFR 117 >=60 mL/min/1. 73m2 LAB CHEMISTRY METHOD 12/01/2024 6:[address] [facility] Comment:Calculation based on the Chronic Kidney Disease Epidemiology Collaboration (CKD-EPI) equation refit without adjustment for race. BUN/Creatinine Ratio 12.2 LAB CHEMISTRY METHOD 12/01/2024 6:03 AM EDT [facility] Calcium 8.4(L) 8.5 - 10.5 mg/dL LAB CHEMISTRY METHOD 12/01/2024 6:03 AM EDT [facility] Blood Venous blood specimen / Unknown Venipuncture / Unknown 12/01/2024 5:06 AM EDT 12/01/2024 5:27 AM EDT Bryan Lowery MD LAB BLOOD ORDERABLES Final Result [facility] [address] [place] [address], [place] [phone] * Hepatitis C Screening (11/08/2021) [facility] Hepatitis C Screening abstracted Historical Provider HEALTH MAINTENANCE Final Result * HIV Screening (03/16/2014) [facility] HIV Screening abstracted Historical Provider HEALTH MAINTENANCE Final Result from Last 3 Months or Most Recently Relevant to Health Maintenance Insurance [facility] MEDICAID ADVANTAGE Advance Directives * Full Code - Confirmed (Latest Code Status on File) Date Activated Date Inactivated Comments 11/30/2024 11:35 PM 12/03/2024 2:[address] atus was ascertained in the following way: Code status discussion: discussion with patient To update the patient's code status, place a code status order. Do not modify or discontinue any currently active code status orders. * Full Code - Default Date Activated Date Inactivated Comments 11/30/2024 9:33 PM 11/30/2024 11:35 PM This is order is used when code status has not been discussed with the patient, or code status is otherwise unknown/unconfirmed To update the patient's code status, place a code status order. Do not modify or discontinue any currently active code status orders. Care Teams Police Detective Relationship Specialty Start Date End Date Parviz Rich MD [address] [place] [phone] PCP - General Internal Medicine 08/24/24
== END 2025-03-12 15:38 | disposition home or self-care (01) ==
LOC: HO.MRI 15:37
PROVIDERS: PCP Internal Medicine; Visit Provider Psychiatry & Neurology Neurology
DX: G40.804 Other epilepsy, intractable, without status epilepticus (principal)
CPT/HCPCS: 70553; A9585

== ENCOUNTER 2025-03-15 15:54 | Outpatient (AMB) | payer MEDICAID, SELFPAY ==
--- NOTE | 2025-03-15 15:56 | A.OFFVIS_ITS ---
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 He was diagnosed at [facility] in 2017. He was getting grand mal seizures. Typically, he had warning of fear, inability to speak, and falling down and shaking all over. He has bitten his tongue but has not urinated during the spell. His MRI of brain revealed multiple finding suggesting genetic etiology for epilepsy. After not having any seizure-like episode since 2019, he had 3 different episodes in a span of 3 months in 2023 without obvious reason and Fycompa was added. His insurance did not cover it and it was changed to phenobarbital. He is presenting with epilepsy for ongoing management and review of recent MRI results. He has been taking phenobarbital and oxcarbazepine to manage his condition. 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 This defect necessitates continued medication to control seizure activity. The patient inquired deeply about the nature of this condition, showing interest in understanding his diagnosis better. The patient's current regimen seems effective, as he reported no new epilepsy-related issues since the initiation of his current medication plan. There was a reaffirmation that there is no need for additional testing unless changes occur. [facility] Medical History (Updated 03/15/25 @ 16:03 by Michael Salas MD) Epilepsy Review of Systems Const Details: - Neurological: Reports epilepsy (managed with phenobarbital and oxcarbazepine); no new neurological complaints. - Musculoskeletal: Denies any new problems or issues. Assessment & Plan Assessment & Plan (1) Epilepsy: Comment: MRI brain at [facility] in 2024 WWO: Nodular sub-ependymomal peña matter heterotopia, bilaterally, right more than left. Right temporal horn is larger, a few non specific WM lesions, one larger one in right post parietal WM Code(s): G40.909 - Epilepsy, unspecified, not intractable, without status epilepticus Category: Medical Qualifiers: Epilepsy type: other Intractability: intractable Status epilepticus: without status epilepticus Qualified Code(s): G40.804 - Other epilepsy, intractable, without status epilepticus Plan: The plan for managing the patient's epilepsy, which has been confirmed as congenital via MRI, consists of maintaining the current medication regimen of phenobarbital and oxcarbazepine. No further diagnostic testing is required at this time, as the treatment is effectively controlling the condition. The need for ongoing medication was stressed as vital due to the permanent nature of the structural abnormality. Arrangements for medication refills will be made through the pharmacy when needed. The next follow-up is planned for six months to reassess and ensure stability in the condition management. 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
--- OUTSIDE RECORDS SUMMARY | 2025-03-15 16:32 | XMS_ITS | Clinical Summary ---
Author Organization [facility] Address [address] [place] [phone] Phone Care Team Providers Care Package Dye Stand Loader Name Role Phone Parviz Rich MD Primary Care Provider + Encounters Date Type Department Care Team Description 12/27/2024 Orders Only [facility] Cardiology [address] [place] [address] Cyndi Deutsch RN from Last 3 Months [...] WELLSENSE NON NSPG PCP [facility] [address] [employer] [facility]CO [employer] NON NSPG PCP [facility] [address] [employer] NON NSPG PCP [facility] Member Subscriber Plan / Payer (Ef fective 2024-Present) Name:MeraFelipe fuentes Relation to Subscriber:Self Name:Felipe Mera Payer ID:[id number] Type:HMO Address: [address] ACO [facility] NON NSPG PCP [facility] Care Teams Package Dye Stand Loader Relationship Specialty Start Date End Date Parviz Rich MD [address] [place] [id number] PCP - General Internal Medicine 12/15/24 Additional Source Comments The information contained in this document represents components of the legal health record. It is not the complete legal health record.[facility]
== END 2025-03-15 16:11 | disposition home or self-care (01) ==
LOC: HO.HSM 15:54
PROVIDERS: PCP Internal Medicine; Visit Provider Psychiatry & Neurology Neurology
DX: G40.804 Other epilepsy, intractable, without status epilepticus (principal); Q04.8 Other specified congenital malformations of brain; G93.9 Disorder of brain, unspecified
CPT/HCPCS: 99214

== ENCOUNTER → 2025-03-15 15:54 | Outpatient (BNVA) | payer OTHER, SELFPAY | PROVIDERS: PCP Internal Medicine; Visit Provider Psychiatry & Neurology Neurology | DX: G40.804 Other epilepsy, intractable, without status epilepticus (principal); Q04.8 Other specified congenital malformations of brain; G93.9 Disorder of brain, unspecified | CPT/HCPCS: 99212 ==

== ENCOUNTER 2025-06-15 15:37 | Outpatient (REF) | payer OTHER, SELFPAY ==
[2025-06-15 16:37] LABS: Carbamazepine Tegretol 5.1 mcg/mL (5.0-12.0)
--- OUTSIDE RECORDS SUMMARY | 2025-06-15 20:43 | XMS_ITS | Clinical Summary ---
Author Organization [facility] Address [address] [place] [phone] Phone Care Team Providers Care Customer Service Administrator Name Role Phone Parviz Rich MD Primary Care Provider + Social History Tobacco Use Types Packs/Day Years [...] on file Insurance WELLSENSE NON NSPG PCP [facility] [place] [address] [place] [address] NSP PCP [facility] Member Subscriber Plan / Payer (Ef fective 2024-Present) Name:Felipe Mera Relation to Subscriber:Self Name:Felipe Mera Payer ID:[id number] Type:O Address: [address] ACO [employer] NON NSPG PCP [facility] A[facility] [employer] NON NSPG PCP [facility] [employer] NON NSPG PCP S[facility] [employer] [facility] ACO [employer] NON NSPG PCP [facility] A[facility] Care Teams Customer Service Administrator Relationship Specialty Start Date End Date Parviz Rich MD [address] [place] [phone] PCP - General Internal Medicine 12/15/24 Additional Source Comments The information contained in this document represents components of the legal health record. It is not the complete legal health record.[facility]
--- OUTSIDE RECORDS SUMMARY | 2025-06-15 20:43 | XMS_ITS | Encounter Summary ---
Author Organization [facility] Address [address] [place] [address] Care Team Providers Care Distresser Name Role Phone Parviz Rich MD Primary Care Provider Reason for Visit * Reason Onset Date Comments Medication Problem 06/14/2025 Encounter Details Date Type Department Care Team ([facility] Contact Info) Description 06/14/2025 Telephone Internal Medicine - [address] [phone] Parviz Rich MD [address] [place] [phone] Social History Tobacco Use Types Packs/Day Years Used Date Smoking Tobacco: Never Smokeless Tobacco: Never Alcohol Use Standard Drinks/Week Comments Never 0 (1 standard drink = 0.6 oz pur e alcohol) Interpersonal Safety Answer Date Record ed Physical Abuse Unrecognized value 12/01/2024 Verbal Abuse Unrecognized value 12/01/2024 Sex and Gender Information Value Date Recorded Sex Assigned at Male 11/30/2024 7:00 PM EDT Legal Sex Male 9:03 AM EST Gender Identity Male 11/30/2024 7:00 PM EDT Sexual Orientation Straight 11/30/2024 7: 00 PM EDT documented as of this encounter Functional Status * Are you deaf or do you have serious difficulty hearing? Answer Date of Assessment Author No 03/30/2025 3:36 PM EDT Tapia RN * Are you blind or do you have serious difficulty seeing, even when wearing glasses? Answer Date of Assessment Author No 03/30/2025 3:36 PM North RN * Do you have serious difficulty walking or climbing stairs? Answer Date of Assessment Author No 03/30/2025 3:36 PM LENNYT Tapia RN * Do you have serious difficulty dressing or bathing? Answer Date of Assessment Author No 03/30/2025 3:36 PM LENNYT Tapia RN * Because of a physical, mental, or emotional condition, do you have serious difficulty doing errandsalone such as visiting the doctor? Answer Date of Assessment Author No 03/30/2025 3:36 PM North RN documented as of this encounter Mental Status * Because of a physical, mental, or emotional condition, do you have serious difficulty concentrating, remembering, or making decisions? (5 years old or older) Answer Entry Date Author No 03/30/2025 3:36 PM North RN documented in this encounter Progress Notes * Sonia Cole MA - 06/14/2025 4:42 PM EST Spoke with pharmacy, medication filled 04/26 for 90 day supply, pt should not be out of medication. * Emma Carreno - 06/14/2025 4:36 PM EST Medication Problem: What is the name of the medication patient is having a problem with?: OXcarbazepine (TRILEPTAL) 600 What is the problem?: need two pill for tonight, after hours at his neurologist office dr Salas, and no one will take a refill request. The [facility] states he had refills , pharmacy says there is not onein the system He will call tomorrow for refill but is requesting just two pills for tonight Who is calling about the problem? : The patient Is this a NEW medication?: no How long has the patient been taking this medication? Long time Who prescribed this medication for the patient? Dr Josue Who is patients PCP?: Parviz Rich MD Payor: [employer] [place] [employer] / Plan: [employer] [place] [employer] / Product Type: *No Product type* / documented in this encounter Plan of Treatment Not on file documented as of this encounter Visit Diagnoses Not on filedocumented in this encounter Care Teams Distresser Relationship Specialty Start Date End Date Parviz Rich MD [address] [place] [phone] PCP - General Internal Medicine 08/24/24 documented as of this encounter
--- OUTSIDE RECORDS SUMMARY | 2025-06-15 20:43 | XMS_ITS | Clinical Summary ---
Author Organization [address] [place] [address] [place] [id number] Phone Care Team Providers Care Geological Engineer Name Role Phone Parviz Rich MD Primary Care Provider [phone] Allergies No known active allergies Medications OXcarbazepine (TRILEPTAL) 600 mg tablet Take 2 Tabs by mouth 2 times daily. 11/01/19 21 Active warfarin (COUMADIN) 2.5 mg tablet MANAGED BY [facility] [place] 09/10/19 22 Active losartan (COZAAR) [...] 1 tablet (10 mg total). Followed by [facility] 11/19/19 25 Active PHENobarbitaL [...] times a day. 30 tablet 1 12/09/19 Active Additional Information Patient not taking.Reported on 04/21/2025 amLODIPine (NORVASC) 10 mg tablet Take 1 tablet (10 mg total) by mouth 1 (one) time each day. 30 each 5 01/31/20 25 Active rosuvastatin (CRESTOR) 20 mg tabletIndications: Nonrheumatic aortic (valve) insufficiency,[place] hypertension,Mild mitral regurgitation,Mild tricuspid regurgitation,Resi stant hypertension,Mixed hyperlipidemia Take 1 tablet (20 mg total) by mouth 1 (one) time each day. 90 each 2 02/21/20 25 026 Active Hospital, Clinic, or Other Facility Administered Medication Ordered Dose Route Frequency Start Date End Date Status cefTRIAXone (ROCEPHIN) injection 2 gIndications:Epididymoorchi tis 2 g IM Once 03/30/2025 07/28/2025 Active Active Problems Problem Noted Date Diagnosed [...] Comprehensive metabolic panel; Future Ascending aortic aneurysm ([facility] V24) 06/15/20 Assessment & Plan [...] dislocation 01/12/2014 Generalized tonic clonic epi lepsy ([facility] V24, [facility] V28) 07/09/2006 Encounters Date Type Department Care Team Description 06/14/2025 Telephone Internal Medicine - [address] [phone] Parviz Rich MD 05/02/2025 9:00 AM EDT Office Visit Walk-In Clinic - [address] [phone] Owen Harris PA Epididymitis, left (Primary Dx) 05/01/2025 Telephone Internal Medicine - [address] [phone] Parviz Rich MD 04/21/2025 11:20 AM EDT Office Visit [facility] [address] [phone] Bernard Cuellar MD Nonrheumatic aortic (valve) insufficiency (Primary Dx); Aneurysm of ascending aorta without rupture ([facility] V24); History of ascending aorta repair; Hx of mechanical aortic valve replacement; Chest pain, unspecified type 03/30/2025 3:33 PM EDT - 03/30/2025 4:16 PM EDT Emergency [facility] Emergency [address] [place] [phone] Epididymoorchitis (Primary Dx) Discharge Disposition: Home or Self Care 03/30/2025 Telephone Internal Medicine - [address] [phone] Parviz Rich MD 03/22/2025 7:00 AM EDT Ancillary Procedure [facility] [address] [phone] Chest pain due to myocardial ischemia, unspecified ischemic chest pain type; Resistant hypertension; Hx of mechanical aortic valve replacement; History of ascending aorta repair; Other chest pain; Renovascular hypertension from Last 3 Months Immunizations Immunization Administration Dates Next Due Influenza Quadravalent, MDCK , 0.5ml, preservative free (Flucelvax) 6mo and older 06/25/2021 Tdap Tetanus diptheria acell ular pertussis (Boostrix; Adacel) 7yo and older 11/20/2010 Surgical History Surgery Date Site/Laterality Comments OTHER SURGICAL HISTORY 2000 PROCEDURE: CA RDCTJ TORSION TSTIS W/WO FIXJ CLAT TESTIS OTHER SURGICAL HISTORY PROCEDURE: CA RPR 1ST INGUN HRNA FULL TERM INFT <6 MO RDC; COMMENT: as infant AORTIC VALVE REPLACEMENT 10/28/2019 PROCEDURE: HISTORICAL AORTIC [...] m assive heart attack Stroke Maternal Grandfather [place], HTN , EtOH abuse Arthritis Mother Other: MVA Sister 1 x 1 Nephrolithiasis Sister 2 x 3 Relation Name Status Comments Brother x 5 Alive x5 healthy Daughter Alive x1 healthy Father (Age 56) [place] Maternal Grandfather Maternal Grandmother unknown Other Mother [...] Sign Reading Time Taken Comments Blood Pressure 160/74 05/02/2025 9:03 AM EDT Pulse 54 05/02/2025 9:03 AM EDT Temperature 36.4 C (97.6 F) 05/02/2025 9:03 AM EDT Respiratory Rate 15 03/30/2025 2:27 PM EDT Oxygen Saturation 98% 05/02/2025 9:03 AM EDT Inhaled Oxygen Concentration - - Weight 61.7 kg (136 lb) 04/21/2025 11:15 AM EDT Height 160 cm (5' 3 ) 04/21/2025 11:15 AM EDT Body Mass Index 24.09 04/21/2025 11:15 AM EDT Plan of Treatment Health Maintenance Due Date Last Done Comments Hepatitis B Vaccines (1 of 3 - 19+ 3-dose series) 2008 HPV Vaccines (1 - 3-dose SCD M series) 2016 Pneumococcal Vaccine: Pediatrics (0 to 5 Years) and At-Risk Patients (6 to 49 Years) (2 of 2 - PCV) 01/15/2017 01/16/2016 Social Influencers of Health Screening 06/29/2022 Depression Screening 07/27/2024 COVID-19 Vaccine (3 - 2024-2 6 season) 2025 04/15/2021, 03/25/2021 Influenza Vaccine (#1) 2025 06/25/2021 Hypertension/CHF/CAD Annual BMP Blood Test 12/01/2025 12/01/2024, 11/30/2024, 11/08/2021 Cholesterol Screening (Lipid Panel) 12/01/2029 12/01/2024, 07/04/2021 DTaP,Tdap,and Td Vaccines (3 - Td or Tdap) 02/27/2033 02/27/2023, 11/20/2010 RSV Immunization Adult Patients (1 - 1-dose 75+ series) 2064 HIV Screening Completed 03/16/2014 Hepatitis C Screening [...] Procedure Name Priority Date/Time Associated Diagnosis Comments URINALYSIS MICROSCOPIC ONLY Routine 05/02/2025 10:21 AM EDT Epididymitis, left URINALYSIS MICROSCOPIC ONLY Routine 05/02/2025 10:21 AM EDT Epididymitis, left CULTURE URINE Routine 05/02/2025 10:21 AM EDT Epididymitis, left JAMES URINE CULTURE TUBE STAT 03/30/2025 4:06 PM EDT URINALYSIS WITH REFLEX MICROSCOPIC AND CULTURE STAT 03/30/2025 4:06 PM EDT URINALYSIS WITH REFLEX MICROSCOPIC AND CULTURE STAT 03/30/2025 4:06 PM EDT US SCROTUM AND CONTENTS STAT 03/30/2025 3:06 PM EDT VAS US DUPLEX RENAL ART/IKER BILATERAL Routine 03/22/2025 7:31 AM EDT Chest pain due to myocardial ischemia, unspecified ischemic chest pain type Resistant hypertension Hx of mechanical aortic valve replacement History of ascending aorta repair Other chest pain Renovascular hypertension LIPID PANEL WITH REFLEX TO DIRECT LDL Routine 12/01/2024 3:19 PM EDT BASIC METABOLIC PANEL Routine 12/01/2024 5:06 AM EDT HEPATITIS C SCREENING Routine 11/08/2021 HIV SCREENING Routine 03/16/2014 from Last 3 Months or Most Recently Relevant to Health Maintenance Results * Urinalysis microscopic only (05/02/2025 10:21 AM EDT) RBC, Urine 2.1 0 - 4 /HPF LAB URINALYSIS - AUTOMATED METHOD 05/02/2025 1:59 PM EDT [facility] WBC, Urine 1.2 0 - 4 /HPF LAB URINALYSIS - AUTOMATED METHOD 05/02/2025 1:59 PM EDT [facility] Squamous Epithelial, Urine 8 0 - 60 /LPF LAB URINALYSIS - AUTOMATED METHOD 05/02/2025 1:59 PM EDT [facility] Bacteria, Urine Negative Negative /HPF LAB URINALYSIS - AUTOMATED METHOD 05/02/2025 1:59 PM EDT [facility] Hyaline Casts, Urine 0.4 0 - 3 /LPF LAB URINALYSIS - AUTOMATED METHOD 05/02/2025 1:59 PM EDT [facility] Urine Urine specimen obtained by clean catch procedure / Unknown Non-blood Collection / Unknown 05/02/2025 10:21 AM EDT 05/02/2025 10:21 AM EDT us Owen ROWLAND LAB URINE ORDERABLES Final Result Performing Organization Address [facility]/ZIP [place] de Phone Number [facility] [address] [place] [address], * Culture urine (05/02/2025 10:21 AM EDT) Culture, Urine No growth 05/03/2025 9:10 AM EDT [facility] Urine Urine specimen obtained by clean catch procedure / Unknown Non-blood Collection / Unknown 05/02/2025 10:21 AM EDT 05/02/2025 10:21 AM EDT us Owen ROWLAND LAB MICROBIOLOGY - GENERAL ORDERABLES Final Result [facility] [address] [place] [address], [place] [phone] * Urinalysis with reflex microscopic and culture (03/30/2025 4:06 PM EDT) Specific [place] Urine 1.008 1.003 - 1.030 LAB URINALYSIS - AUTOMATED METHOD 03/30/2025 4:23 PM EDT [facility] pH, Urine 8.0 5.0 - 8.0 pH LAB URINALYSIS - AUTOMATED METHOD 03/30/2025 4:23 PM [facility] Leukocytes, Urine Negative Negative LAB URINALYSIS - AUTOMATED METHOD 03/30/2025 4:23 PM [facility] Nitrite, Urine Negative Negative LAB URINALYSIS - AUTOMATED METHOD 03/30/2025 4:23 PM [facility] Protein, Urine Negative <=Trace mg/dL LAB URINALYSIS - AUTOMATED METHOD 03/30/2025 4:23 PM [facility] Glucose, Urine Negative Negative mg/dL LAB URINALYSIS - AUTOMATED METHOD 03/30/2025 4:23 PM [facility] Ketones, Urine Negative Negative mg/dL LAB URINALYSIS - AUTOMATED METHOD 03/30/2025 4:23 PM [facility] Urobilinogen, Urine 0.2 0.2 - 1.0 mg/dL LAB URINALYSIS - AUTOMATED METHOD 03/30/2025 4:23 PM [facility] Bilirubin, Urine Negative Negative LAB URINALYSIS - AUTOMATED METHOD 03/30/2025 4:23 PM [facility] Blood, Urine Negative Negative LAB URINALYSIS - AUTOMATED METHOD 03/30/2025 4:23 PM [facility] Urine Urine specimen obtained by clean catch procedure / Unknown Non-blood Collection / Unknown 03/30/2025 4:06 PM EDT 03/30/2025 4:19 PM EDT Tomy ROWLAND LAB URINE ORDERABLES Final Result Performing Organization Address [facility] Co de Phone Number [facility] [address] [place] [address], [place] [phone] * James urine culture tube (03/30/2025 4:06 PM EDT) Extra Tube Hold for add-ons. 03/30/2025 6:01 PM EDT [facility] Comment:Auto resulted. Urine Urine specimen obtained by clean catch procedure / Unknown Non-blood Collection / Unknown 03/30/2025 4:06 PM EDT 03/30/2025 4:19 PM EDT Tomy ROWLAND LAB URINE ORDERABLES Final Result Performing Organization Address [facility] Co de Phone Number [facility] [address] [place] [address], [place] [phone] * [place] Scrotum and Contents (03/30/2025 3:06 PM EDT) Anatomical Region Laterality Modality Body Ultrasound 03/30/2025 3:23 PM EDT Impressions 03/30/2025 3:26 PM EDT No evidence for testicular torsion, intermittent torsion not excluded. Suspect right epididymoorchitis. -------- FINAL REPORT -------- Dictated By: Zack Welch Dictated Date: 03/30/2025 15:23 ET Assigned Physician: Zack Welch Reviewed and Electronically Signed By: Zack Welch Signed Date: 03/30/2025 15:26 ET Workstation ID: [id number] Transcribed By: Self Edit Transcribed Date: 03/30/2025 15:23 ET Narrative 03/30/2025 3:26 PM EDT TESTICULAR ULTRASOUND Indication: pain rule out tortion Comparison: Technique: Real-time ultrasound was performed. Multiple static grayscale and color images were obtained. FINDINGS: The right testicle demonstrates slightly increased vascularity.. The right testicle measures 4.8 x 1.8 x 3.4. No varicocele is identified. The right epididymal head demonstrates increased vascularity. Thickened epididymis measuring 5 mm. The left testicle appears unremarkable with normal Doppler detected blood flow. The left testicle measures 3 x 1.5 x 2.5. No varicocele is seen. The left epididymal head appears unremarkable with normal Doppler detected blood flow. No hydrocele visualized. Procedure Note Zack Welch MD - 03/30/2025 TESTICULAR ULTRASOUND Indication: pain rule out tortion Comparison: Technique: Real-time ultrasound was performed. Multiple static grayscaleand color images were obtained. FINDINGS: The right testicle demonstrates slightly increased vascularity.. The righttesticle measures 4.8 x 1.8 x 3.4. No varicocele is identified. The right epididymal head demonstrates increased vascularity. Thickenedepididymis measuring 5 mm. The left testicle appears unremarkable with normal Doppler detected bloodflow. The left testicle measures 3 x 1.5 x 2.5. No varicocele is seen. The left epididymal head appears unremarkable with normal Doppler detectedblood flow. No hydrocele visualized. IMPRESSION: No evidence for testicular torsion, intermittent torsion not excluded.Suspect right epididymoorchitis. -------- FINAL REPORT -------- Dictated By: Zack Welch Dictated Date: 03/30/2025 15:23 ET Assigned Physician: Zack Welch Reviewed and Electronically Signed By: Zack Welch Signed Date: 03/30/2025 15:26 ET Workstation ID: [id number] Transcribed By: Self Edit Transcribed Date: 03/30/2025 15:23 ET us Chris Monzon MD IMG US PROCEDURES Final Result * Vascular US duplex renal artery/venous bilateral (03/22/2025 7:31 AM EDT) Left renal dist powers 26 cm/s [facility] Left renal dist sys 75 cm/s [facility] Left Renal Dist RI 0.66 no units [facility] Left renal mid powers 39 cm/s [facility] Left renal mid sys 139 cm/s [facility] Left Renal Mid RI 0.72 no units [facility] Left renal prox powers 30 cm/s [facility] Left renal prox sys 100 cm/s CV [facility] LAB Left Renal Prox RI 0.70 no units [facility] Right renal dist powers 29 cm/s [facility] Right renal dist sys 136 cm/s [facility] RIght Renal Dist RI 0.78 no units [facility] Right renal mid powers 44 cm/s [facility] Right renal mid sys 152 cm/s [facility] RIght Renal Mid RI 0.71 no units [facility] Right renal prox powers 55 cm/s [facility] Right renal prox sys 161 cm/s [facility] RIght Renal Prox RI 0.66 no units [facility] Suprarenal Aorta PSV 56 cm/s [facility] Right kidney length 10.89 cm [facility] Right kidney width 5.56 cm [facility] Abdominal mid aorta jose raul 56 cm/s [facility] Right renal prox rar 2.88 [facility] Right renal mid rar 2.71 CV [facility] LAB Right renal dist rar 2.43 [facility] Right Upper Renal Pole PSV 23 cm/s CV [facility] LAB Right Upper Renal Pole EDV 8 cm/s CV [facility] LAB Right Upper Renal Pole RI 0.65 CV VAS LAB Right Middle Renal Pole PSV 35 cm/s [facility] Right Middle Renal Pole EDV 9 cm/s CV [facility] LAB Right Middle Renal Pole RI 0.74 CV VAS LAB Right Lower Renal Pole PSV 22 cm/s CV [facility] LAB Right Lower Renal Pole EDV 8 cm/s CV [facility] LAB Right Lower Renal Pole RI 0.64 CV VAS LAB Left kidney length 10.81 cm CV VAS LAB Left kidney width 4.49 cm CV [facility] LAB Left renal prox rar 1.79 CV [facility] LAB Left renal mid rar 2.48 CV [facility] LAB Left renal dist rar 1.34 CV [facility] LAB Left Upper Renal Pole PSV 26 cm/s CV [facility] LAB Left Upper Renal Pole EDV 8 cm/s CV [facility] LAB Left Upper Renal Pole RI 0.69 CV VAS LAB Left Middle Renal Pole PSV 25 cm/s CV [facility] LAB Left Middle Renal Pole EDV 8 cm/s CV [facility] LAB Left Middle Renal Pole RI 0.68 CV VAS LAB Left Lower Renal Pole PSV 22 cm/s [facility] LAB Left Lower Renal Pole EDV 7 cm/s CV [facility] LAB Left Lower Renal Pole RI 0.68 CV [facility] LAB Right Kidney Cyst 1 AP 0.55 cm CV [facility] LAB Right Kidney Cyst 1 TR 0.76 cm CV [facility] LAB Right Kidney Cyst 2 AP 0.76 cm CV VAS LAB Right Kidney Cyst 2 TR 0.65 cm CV [facility] Left Kidney Cyst 1 AP 0.62 cm CV [facility] Left Kidney Cyst 1 TR 0.75 cm CV [facility] Left Kidney Cyst 2 AP 0.66 cm [facility] Left Kidney Cyst 2 TR 0.50 cm [facility] Anatomical Region Laterality Modality Vascular, Abdomen Ultrasound Narrative 03/31/2025 9:25 AM EDT Right kidney: 1. There is no evidence of hemodynamically significant renal artery stenosis. 2. Borderline right renal resistive index. 3. Normal right kidney length. 4. There are multiple cysts in the right kidney. The maximum diameter of a cyst was noted to be 0.76 cm.. Left kidney: 1. There is no evidence of hemodynamically significant left renal artery stenosis. 2. Normal left renal resistive index. 3. Normal left kidney length. 4. There are multiple cysts in the left kidney. The maximum diameter of a cyst was noted to be 0.75 cm. Kidneys The right kidney is 10.89 cm in length x 5.56 cm in width. There is a cyst measuring 0.55 cm AP x 0.76 cm transverse. There is a second cyst measuring 0.76 cm AP x 0.65 cm transverse. The left kidney is 10.81 cm in length x 4.49 cm in width. There is a cyst measuring 0.62 cm AP x 0.75 cm transverse. There is a second cyst measuring 0.66 cm AP x 0.50 cm transverse. Administrative Office Specialist Details A james scale, color and doppler analysis ultrasound was performed. During the study longitudinal and transverse views were obtained. Continuous wave doppler and pulsed wave doppler was performed. Overall the study quality was good. us Bernard Cuellar MD CV VASCULAR PROCEDURES Final Re sult * (ABNORMAL) Lipid panel with reflex to direct LDL (12/01/2024 3:19 PM EDT) [facility] Cholesterol 238(H) 0 - 200 mg/dL LAB CHEMISTRY METHOD 12/01/2024 4:26 PM EDT [facility] Triglycerides 181(H) 0 - 150 mg/dL LAB CHEMISTRY METHOD 12/01/2024 4:26 PM EDT [facility] HDL 63 >=40 mg/dL LAB CHEMISTRY METHOD 12/01/2024 4:26 PM [facility] LDL Calculated 139(H) 0 - 100 mg/dL LAB CHEMISTRY METHOD 12/01/2024 4:26 PM EDT [facility] VLDL Cholesterol Nemesio 36.2 mg/dL LAB CHEMISTRY METHOD 12/01/2024 4:26 PM T [facility] Non HDL Chol. (LDL+VLDL) 175(H) <145 mg/dL LAB CHEMISTRY METHOD 12/01/2024 4:26 PM [facility] Chol/HDL Ratio 3.8 0.0 - 4.4 LAB CHEMISTRY METHOD 12/01/2024 4:26 PM [facility] Blood Venous blood specimen / Unknown Venipuncture / Unknown 12/01/2024 3:19 PM EDT 12/01/2024 3:46 PM EDT Kenna Gil BUCKLE COVERER LAB BLOOD ORDERABLES Fin al Result [facility] [address] [place] [address], * (ABNORMAL) Basic metabolic panel (12/01/2024 5:06 AM EDT) Sodium 139 133 - 145 mmol/L LAB CHEMISTRY METHOD 12/01/2024 6:03 AM [facility] Potassium 4.1 3.5 - 5.5 mmol/L LAB CHEMISTRY METHOD 12/01/2024 6:03 AM [facility] Chloride 105 96 - 110 mmol/L LAB CHEMISTRY METHOD 12/01/2024 6:03 AM [facility] CO2 30 21 - 32 mmol/L LAB CHEMISTRY METHOD 12/01/2024 6:03 AM [facility] Anion Gap 4 3 - 11 LAB CHEMISTRY METHOD 12/01/2024 6:03 AM [facility] Glucose 88 70 - 100 mg/dL LAB CHEMISTRY METHOD 12/01/2024 6:03 AM [facility] BUN 10 5 - 25 mg/dL LAB CHEMISTRY METHOD 12/01/2024 6:03 AM [facility] Creatinine 0.82 0.70 - 1.30 mg/dL LAB CHEMISTRY METHOD 12/01/2024 6:03 AM [facility] eGFR 117 >=60 mL/min/1. 73m2 LAB CHEMISTRY METHOD 12/01/2024 6:03 AM [facility] Comment:Calculation based on the Chronic Kidney Disease Epidemiology Collaboration (CKD-EPI) equation refit without adjustment for race. BUN/Creatinine Ratio 12.2 LAB CHEMISTRY METHOD 12/01/2024 6:03 AM [facility] Calcium 8.4(L) 8.5 - 10.5 mg/dL LAB CHEMISTRY METHOD 12/01/2024 6:03 AM [facility] Blood Venous blood specimen / Unknown Venipuncture / Unknown 12/01/2024 5:06 AM EDT 12/01/2024 5:27 AM EDT Bryan Lowery MD LAB BLOOD ORDERABLES Final Result [facility] [address] [place] [address], * Hepatitis C Screening (11/08/2021) [facility] Hepatitis C Screening abstracted Historical Provider HEALTH MAINTENANCE Final Result * HIV Screening (03/16/2014) [facility] HIV Screening abstracted [facility] Provider HEALTH MAINTENANCE Final Result from Last 3 Months or Most Recently Relevant to Health Maintenance Insurance [facility] MEDICAID ADVANTAGE Advance Directives * Full Code [...] currently active code status orders. Care Teams Geological Engineer Relationship Specialty Start Date End Date Parviz Rich MD [address] [place] [id number] PCP - General Internal Medicine 08/24/24
== END 2025-06-15 15:38 | disposition home or self-care (01) ==
LOC: HO.LAB 15:37
PROVIDERS: PCP Internal Medicine; Visit Provider Psychiatry & Neurology Neurology
DX: G40.804 Other epilepsy, intractable, without status epilepticus (principal)
CPT/HCPCS: 36415; 80156